=== PATIENT | male | born 2000 | race Caucasian/White ===

== ENCOUNTER 2021-03-16 13:33 | Observation (INO) ==
[2021-03-16] MEDS ORDERED: oxyCODONE/Acetamin 5/325 mg TAB PO PRN (16:04)
[2021-03-16] MEDS ORDERED: Lactated Ringers 1000 ml BAG 1,000 ML IV SCH (17:00)
[2021-03-16] MEDS: ceFAZolin 1 GM ADVAN 1 GM in NS 0.9% 50 ML 50 ML IVPB SCH (17:53)
[2021-03-16] MEDS ORDERED: Morphine 2 MG/ML SYRINGE IV PRN (18:30)
[2021-03-16 20:10] LABS: ABS Eosinophils 0.1 10^3/ul (0-0.6); ABS Lymphocytes 2.2 10^3/ul (1.0-4.8); ABS Monocytes 0.5 10^3/ul (0-0.8); ABS Neutrophils 7.7 10^3/ul (1.5-7.7); Eosinophil % 0.9 %; Hematocrit 45 % (42-52); Hemoglobin 15.4 g/dL (14.0-18.0); Lymphocyte % 20.6 %; Mean Corpuscular HGB Conc 35 g/dL (31-36); Mean Corpuscular Hemoglobin 32 pg (27-31); Mean Corpuscular Volume 92 fL (80-94); Mean Platelet Volume 8.3 fL (7.4-10.4); Platelet Count 233 10^3/uL (150-450); Red Blood Count 4.84 10^6 /uL (4.18-5.48); Red Cell Distribution Width 13 % (10-15); White Blood Count 10.5 10^3/uL (3.5-10.8)
[2021-03-16 20:30] LABS: Calcium 9.8 mg/dL (8.6-10.3); EGFR African American 136.8 (>60)
[2021-03-16] MEDS: oxyCODONE/Acetamin 5/325 mg TAB PO PRN (22:18)
[2021-03-17] MEDS: ceFAZolin 1 GM ADVAN 1 GM in NS 0.9% 50 ML 50 ML IVPB SCH ×2 (01:19→08:31)
[2021-03-17] MEDS: oxyCODONE/Acetamin 5/325 mg TAB PO PRN (02:30)
[2021-03-17] MEDS ORDERED: Ondansetron ODT 4 mg TAB 4 MG TAB PO PRN (08:23)
[2021-03-17] MEDS ORDERED: Ondansetron ODT 4 mg TAB 4 MG TAB ONE (08:23)
[2021-03-17] MEDS ORDERED: Propofol 10 MG/ML 20 ML BTL ONE (08:33)
[2021-03-17] MEDS ORDERED: Lidocaine 2% PF 5 ML VIAL ONE (08:34)
[2021-03-17] MEDS ORDERED: ceFAZolin VIAL VIAL ONE (09:58)
[2021-03-17] MEDS ORDERED: Naloxone 0.4 mg VIAL 0.4 mg/ml 1 ml VIAL IV PRN (11:07)
[2021-03-17] MEDS ORDERED: HYDROmorphone 1 MG/1 ML SYRINGE IV PRN (11:07)
[2021-03-17] MEDS ORDERED: Ondansetron 4 mg VIAL 2 MG/ML 2 ml VIAL IV PRN (11:07)
[2021-03-17] MEDS ORDERED: Dexamethasone IV 4 MG/ML VIAL 1 ml VIAL ONE (11:08)
[2021-03-17] MEDS ORDERED: HYDROmorphone 1 MG/1 ML SYRINGE ONE (11:33)
[2021-03-17 14:16] VITALS: BP 129/62
== END 2021-03-17 15:37 | disposition home or self-care (01) ==
LOC: ED 13:33 → INTOOBSV 16:04 → SSU 16:04
PROVIDERS: ADMIT Orthopaedic Surgery Hand Surgery; ATTEND Orthopaedic Surgery Hand Surgery